=== PATIENT | female | born 1935 | race Caucasian/White ===

== ENCOUNTER 2018-07-10 06:43 | Day surgery (SDC) | payer MEDICARE ==
[2018-07-10] MEDS ORDERED: Propofol 200 MG/20 ML SDV IV ONE (06:44)
[2018-07-10] MEDS ORDERED: Lidocaine 2% 100 MG/5 ML Syringe IVPUSH ONE (06:44)
[2018-07-10] MEDS ORDERED: Lactated Ringers 1,000 ML IV SCH (06:45)
--- NOTE | 2018-07-10 08:19 | PCM.HPR ---
H & P Addendum review - H & P Addendum Review Date of Original H & P: 07/07/18 Date Reviewed: 07/10/18 Time Reviewed: 08:00 Patient was Examined: No Changes
--- NOTE | 2018-07-10 08:31 | PCM.OPNOTE ---
- General Post-Op/Procedure Note Date of Surgery/Procedure: 07/10/18 Operative Procedure(s): EGD Findings: Normal; loose LES Pre Op Diagnosis: Epigastric Pain Post-Op Diagnosis: Same Anesthesia Technique: MAC Primary Surgeon: Dylan Mckenzie Complications: None Condition: Good
[2018-07-10 10:47] VITALS: BP 141/90
--- NOTE | 2018-07-13 08:05 | OR ---
DATE OF OPERATION: 07/10/2018 SURGEON: Dylan Mckenzie MD PREOPERATIVE DIAGNOSIS: Epigastric pain. POSTOPERATIVE DIAGNOSIS: Normal EGD. PROCEDURE: EGD. ANESTHESIA: IV sedation. DESCRIPTION OF PROCEDURE: The patient was brought to the procedure room, where she was placed on her left side and IV sedation administered. Oral bite block was placed and the upper endoscope advanced into the esophagus under direct vision without difficulty. Scope was advanced to the third portion of the duodenum. Duodenum and pylorus were normal. Antrum and body of the stomach were normal. Retroflexion reveals a normal-appearing fundus. The lower esophageal sphincter is weak, and I can visualize into the last few centimeters of the distal esophagus. There are no erosions, ulcerations, strictures or other abnormalities noted. No source of the pain or dark stools was noted. Air was removed from the stomach and the scope withdrawn through the remaining esophagus, which appears normal. Vocal cords were viewed and were normal. The patient tolerated the procedure well and returned to Recovery in stable condition. /[id number] URSZULA/IAM CC: DIONTE RHOADES CNP
== END 2018-07-10 10:05 | disposition home or self-care (01) ==
LOC: FB.SDS 06:43
PROVIDERS: ATTEND Surgery
DX: R10.13 Epigastric pain (principal); R19.5 Other fecal abnormalities; B37.81 Candidal esophagitis; E03.9 Hypothyroidism, unspecified; I11.0 Hypertensive heart disease with heart failure; I50.32 Chronic diastolic (congestive) heart failure; I27.20 Pulmonary hypertension, unspecified; G47.33 Obstructive sleep apnea (adult) (pediatric); Z99.89 Dependence on other enabling machines and devices; I48.91 Unspecified atrial fibrillation; E78.00 Pure hypercholesterolemia, unspecified; K21.9 Gastro-esophageal reflux disease without esophagitis; Z79.01 Long term (current) use of anticoagulants; Z79.899 Other long term (current) drug therapy; Z79.890 Hormone replacement therapy; Z88.1 Allergy status to other antibiotic agents
CPT/HCPCS: 00731; 36415; 43235; 81001; 85610; J2001; J2704; J7120

== ENCOUNTER 2018-07-11 12:27 | Emergency (ER) | payer MEDICARE ==
--- NOTE | 2018-07-11 13:02 | EDM.PDOC ---
ED HPI GENERAL MEDICAL PROBLEM - General Stated Complaint: FEELING ILL STOMACH ACID, EGD YESTERDAY Time Seen by Provider: 07/11/18 12:30 Source of Information: Reports: Patient - History of Present Illness INITIAL COMMENTS - FREE TEXT/NARRATIVE: pt comes with concerns for her Afib, tells me she has Hx of this for 2 years, and yesterday while havening her EGD procedure she was told that she has really afib by one of the staff, pt felt fing after the EGD which was to evaluate GERD , today however she feels anxious about what she was told about her afib yesterday that itt is ( real afib ) she is here with concern that this could be something bad. 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 pt beside the above has no other medical concerns. - Related Data Allergies Allergy/AdvReac Type Severity Reaction Status Date / Time ciprofloxacin Allergy UNKNOWN Verified 07/10/18 07:51 scallops Allergy Rash Verified 07/10/18 07:51 Home Meds: Home Meds Furosemide [Lasix] 40 mg PO DAILY 01/06/13 [History] Levothyroxine Sodium [Synthroid] 100 mcg PO DAILY 01/06/13 [History] Losartan [Cozaar] 100 mg PO DAILY 01/06/13 [History] Omeprazole [Prilosec] 20 mg PO DAILY 01/06/13 [History] Warfarin [Coumadin] 2.5 mg PO MOWEFR 01/06/13 [History] Warfarin [Coumadin] 5 mg PO SUTUTHSA 01/06/13 [History] Allopurinol [Zyloprim] 100 mg PO DAILY 07/09/18 [History] Metoprolol Succinate 25 mg PO DAILY 07/09/18 [History] Multivitamin with Minerals [Multivitamins with Minerals] 1 tab PO DAILY [History] Potassium Chloride 1 tab PO BID 07/09/18 [History] Pravastatin Sodium [Pravastatin (Pravachol)] 1 tab PO BEDTIME 07/09/18 [History] Ranitidine HCl [Ranitidine] 1 tab PO BID 07/09/18 [History] Acetaminophen [Tylenol] 650 mg PO Q4H PRN 07/10/18 [History] Past Medical History HEENT History: Reports: Impaired Vision Cardiovascular History: Reports: Afib, High Cholesterol, Hypertension Respiratory History: Reports: None Gastrointestinal History: Reports: Chronic Constipation, GERD Genitourinary History: Reports: None NET COORDINATOR History: Reports: Musculoskeletal History: Reports: Gout Other Musculoskeletal History: CARPAL TUNNEL SYNDROME ON BOTH SIDES Neurological History: Reports: None Psychiatric History: Reports: None Endocrine/Metabolic History: Reports: Hypothyroidism Hematologic History: Reports: None Immunologic History: Reports: None Oncologic (Cancer) History: Reports: None Dermatologic History: Reports: None - Past Surgical History Head Surgeries/Procedures: Reports: None GI Surgical History: Reports: Appendectomy, Colonoscopy, EGD Female Surgical History: Reports: Cystoscopy, Hysterectomy Social & Family History - Caffeine Use Caffeine Use: Reports: None ED ROS GENERAL - Review of Systems Review Of Systems: See Below Constitutional: Reports: No Symptoms HEENT: Reports: No Symptoms Respiratory: Reports: No Symptoms Cardiovascular: Reports: No Symptoms GI/Abdominal: Reports: No Symptoms Neurological: Reports: No Symptoms ED EXAM, GENERAL - Physical Exam Exam: See Below Exam Limited By: No Limitations General Appearance: Alert, No Apparent Distress, Other (pt seems little anxious) Nose: Normal Inspection Throat/Mouth: Normal Inspection, Normal Lips, Normal Oropharynx, Normal Voice, No Airway Compromise Head: Atraumatic, Normocephalic Neck: Normal Inspection, Supple, Non-Tender Respiratory/Chest: No Respiratory Distress, Lungs Clear, Normal Breath Sounds Cardiovascular: Other (IRIR with normal rate. ). No: No Edema, No Gallop, No Murmur, No Rub, JVD GI/Abdominal: Normal Bowel Sounds, Soft, Non-Tender Neurological: Alert, Oriented, CN II-XII Intact, Normal Cognition, Normal Gait, No Motor/Sensory Deficits Course - Vital Signs Text/Narrative:: EKG shows a-fib with HR in 99, no acute st changes, on monitor her HR is from 80s-100, rest of her vitals are stable, sats in high 90s. pt is comfortable here except for what she was told yesterday about having a ( real a-fib ) whci appear to have scared her the way it was said. pt Coumadin was held prior to her EGD and will be restarted today. i did reassured pt that her chronic afib is stable and that she is doing all what she is supposed to do, taking her medications to keep HR under control also medications to stay anticoagulated. also explained to pt the omeprazole she started just yesterday will take about 1 -2 weeks to show its effects on her GERD sx or not, and for this she was given gicocktail here and was encouraged to continue with her omeprazole and Zantac. - Orders/Labs/Meds Orders: Active Orders 24 hr Category Date Time Status EKG 12 Lead [EK] Routine Ther 07/11/18 12:40 Ordered Departure - Departure Time of Disposition: 13:10 Disposition: Home, Self-Care 01 Clinical Impression: Afib - Discharge Information Referrals: Yary Fierro, COMBINATION MACHINE TENDER [Primary Care Provider] - - My Orders Last 24 Hours: My Active Orders 07/11/18 12:40 EKG 12 Lead [EK] Routine - Assessment/Plan Last 24 Hours: My Active Orders 07/11/18 12:40 EKG 12 Lead [EK] Routine
[2018-07-11] MEDS ORDERED: Alum Hydroxide/Mag Hydroxide 15 ML, Lidocaine 2% 15 ML PO ONE ×2 (13:11)
[2018-07-11 14:57] VITALS: BP 126/80
== END 2018-07-11 13:40 | disposition home or self-care (01) ==
LOC: FB.ED 12:27
DX: I48.91 Unspecified atrial fibrillation (principal); I10 Essential (primary) hypertension; Z91.018 Allergy to other foods; Z88.1 Allergy status to other antibiotic agents; Z79.899 Other long term (current) drug therapy
CPT/HCPCS: 93005; 99284; A9270

== ENCOUNTER 2018-07-20 07:06 | Day surgery (SDC) | payer MEDICARE ==
[2018-07-20] MEDS ORDERED: Propofol 200 MG/20 ML SDV IV ONE (07:07)
[2018-07-20] MEDS ORDERED: Lactated Ringers 1,000 ML IV SCH (07:15)
--- NOTE | 2018-07-20 09:16 | PCM.OPNOTE ---
- General Post-Op/Procedure Note Date of Surgery/Procedure: 07/20/18 Operative Procedure(s): Colonoscopy with polypectomy and biopsy Findings: Small rectal Polyps Moderate Sigmoid Diverticulosis Remainder of colon appears normal Pre Op Diagnosis: Change in bowel habits. Guiac + stools Post-Op Diagnosis: Colon Polyps. Sigmoid Diverticulosis Anesthesia Technique: [facility] Primary Surgeon: Adam Tompkins Pathology: Colon Polyps Random Colon Biopsies EBL in mLs: 4 Complications: None Condition: Good
[2018-07-20 10:09] VITALS: BP 121/88
--- NOTE | 2018-07-20 13:02 | OR ---
DATE OF OPERATION: 07/20/2018 SURGEON: Adam Tompkins MD PREOPERATIVE DIAGNOSES: Guaiac-positive stools and change in bowel habits. POSTOPERATIVE DIAGNOSES: Colon polyps, sigmoid diverticulosis. OPERATION PERFORMED: Colonoscopy with polypectomy and biopsy. INDICATIONS FOR SURGERY: This 83-year-old female was referred for colonoscopy. She has had a recent change in her bowel pattern, is also noted to have guaiac- positive stools. FINDINGS: The patient has 2 polyps noted low in the colon. One is a 5 mm polyp in the rectum 10 cm from the anal verge and the other is a 7 mm polyp in the sigmoid colon, 18 cm from the anal verge. These were both sessile in configuration. The patient has a moderate degree of sigmoid diverticulosis, although this does not appear to be acutely inflamed or otherwise complicated. The remainder of her colon appears normal. PROCEDURE IN DETAIL: The patient was taken to the procedure room. She was given intravenous sedation, and with her in the left lateral decubitus position, digital rectal exam was performed showing no rectal masses. The Olympus colonoscope was inserted into the rectum and retroflexed examination of the rectal canal was performed. The above-described polyps were identified low in the colon. The smaller polyp was removed with a biopsy forceps and the larger polyp was removed with a cautery snare. Both polyps were retrieved. The scope was then carefully advanced under direct visualization through the entire length of the colon until the cecum was reached. The colon was somewhat tortuous, but with careful manipulation, the scope was able to be advanced to the cecum. Cecal acquisition was confirmed by identifying the normal internal cecal anatomy including the appendiceal orifice and ileocecal valve. The light was also noted to transilluminate the abdominal wall in the right lower quadrant. After examining the cecum, the scope was slowly withdrawn sequentially re-examining the colonic segments. During withdrawal of the scope, random biopsies were taken of the right and left sides of the colon to evaluate for her change in bowel habits. After the exam had been completed and with no sign of any complication, the scope was removed and the patient was taken from the procedure room in satisfactory condition. ESTIMATED BLOOD LOSS: 4 mL. COMPLICATIONS: None. PROGNOSIS: Good. /[id number] MICHELET/IAM
--- NOTE | 2018-07-20 13:09 | PREOP ---
ADMISSION DATE: 07/20/2018 This 83-year-old female was referred for colonoscopy. She has a recent history of guaiac-positive stools identified, but also has had a recent change in bowel pattern with increasingly loose stools. She has also had some upper abdominal pain. She is medically stable to proceed today. There is no significant recent change in her health status. I have discussed the proposed colonoscopy with the patient. She understands indications and risks and agrees to proceed accepting risks. /[id number] MICHELET/IAM
== END 2018-07-20 10:12 | disposition home or self-care (01) ==
LOC: FB.SDS 07:06
PROVIDERS: ATTEND Surgery
DX: R19.5 Other fecal abnormalities (principal); R19.4 Change in bowel habit; R10.10 Upper abdominal pain, unspecified; K62.1 Rectal polyp; K63.5 Polyp of colon; K57.30 Diverticulosis of large intestine without perforation or abscess without bleeding; I11.0 Hypertensive heart disease with heart failure; I50.32 Chronic diastolic (congestive) heart failure; I48.0 Paroxysmal atrial fibrillation; E78.00 Pure hypercholesterolemia, unspecified; K21.9 Gastro-esophageal reflux disease without esophagitis; E03.9 Hypothyroidism, unspecified; Z79.01 Long term (current) use of anticoagulants; Z79.899 Other long term (current) drug therapy; Z88.1 Allergy status to other antibiotic agents
CPT/HCPCS: 00812; 45380; 45385; 88305; J2704; J7120

== ENCOUNTER 2020-06-16 09:26 | Emergency (ER) | payer MEDICARE ==
[2020-06-16] MEDS ORDERED: Sodium Chloride 0.9% 10 ML Syringe FLUSH PRN (11:05)
--- NOTE | 2020-06-16 11:12 | EDM.PDOC ---
ED HPI GENERAL MEDICAL PROBLEM - General Chief Complaint: General Stated Complaint: TROUBLE BREATHING Time Seen by Provider: 06/16/20 11:07 Source of Information: Reports: Patient History Limitations: Reports: No Limitations - History of Present Illness INITIAL COMMENTS - FREE TEXT/NARRATIVE: Patient lost her balance two days ago while dusting an endtable and fell to the floor. Denies head injury, loss of consciousness, headache, or neck pain. She complains of right rib pain and SOB due to painful breathing. Denies abdominal or pelvis pain but requests pelvis xray in addition to rib xray to be sure that she doesn't have a fracture. No cough or hemoptysis. Patient was prescribed Macrobid two days ago for a UTI. States dysuria has resolved, but still having urinary frequency. Duration: Day(s): (2) Location: Reports: Chest Severity: Moderate - Related Data Allergies Allergy/AdvReac Type Severity Reaction Status Date / Time ciprofloxacin Allergy Acid Reflux Verified 06/16/20 10:01 scallops Allergy Rash Verified 06/16/20 10:01 Home Meds: Home Meds Furosemide [Lasix] 40 mg PO DAILY 01/06/13 [History] Levothyroxine Sodium [Synthroid] 100 mcg PO DAILY 01/06/13 [History] Losartan [Cozaar] 100 mg PO DAILY 01/06/13 [History] Warfarin [Coumadin] 2.5 mg PO MOWEFR 01/06/13 [History] Warfarin [Coumadin] 5 mg PO SUTUTHSA 01/06/13 [History] Metoprolol Succinate 25 mg PO DAILY 07/09/18 [History] Multivitamin with Minerals [Multivitamins with Minerals] 1 tab PO DAILY 07/09/18 [History] Potassium Chloride 1 tab PO BID 07/09/18 [History] Pravastatin Sodium [Pravastatin (Pravachol)] 1 tab PO BEDTIME 07/09/18 [History] Ranitidine HCl [Ranitidine] 1 tab PO BID 07/09/18 [History] allopurinoL [Zyloprim] 100 mg PO DAILY 07/09/18 [History] Acetaminophen [Tylenol] 650 mg PO Q4H PRN 07/10/18 [History] Omeprazole 1 cap PO DAILY 07/17/18 [History] Past Medical History HEENT History: Reports: Impaired Vision Cardiovascular History: Reports: Afib, High Cholesterol, Hypertension Respiratory History: Reports: None Gastrointestinal History: Reports: Chronic Constipation, GERD Genitourinary History: Reports: None 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: Musculoskeletal History: Reports: Gout Other Musculoskeletal History: CARPAL TUNNEL SYNDROME ON BOTH SIDES Neurological History: Reports: None Psychiatric History: Reports: None Endocrine/Metabolic History: Reports: Hypothyroidism Hematologic History: Reports: None Immunologic History: Reports: None Oncologic (Cancer) History: Reports: None Dermatologic History: Reports: None - Infectious Disease History Infectious Disease History: Reports: None - Past Surgical History Head Surgeries/Procedures: Reports: None GI Surgical History: Reports: Appendectomy, Colonoscopy, EGD Female Surgical History: Reports: Cystoscopy, Hysterectomy Social & Family History - Tobacco Use Tobacco Use Status *Q: Never Tobacco User Second Hand Smoke Exposure: No - Caffeine Use Caffeine Use: Reports: Coffee - Recreational Drug Use Recreational Drug Use: No ED ROS GENERAL - Review of Systems Review Of Systems: Comprehensive ROS is negative, except as noted in HPI. ED EXAM, GENERAL - Physical Exam Exam: See Below Exam Limited By: No Limitations General Appearance: Alert, WD/WN, No Apparent Distress Nose: Normal Inspection Throat/Mouth: No Airway Compromise Head: Atraumatic, Normocephalic Neck: Full Range of Motion Respiratory/Chest: No Respiratory Distress, Lungs Clear, Normal Breath Sounds, Other (Mild right anterior and lateral chest wall tenderness, no deformities or crepitus.) Cardiovascular: Regular Rate, Rhythm, No Murmur GI/Abdominal: Normal Bowel Sounds, Soft, No Distention, Tender (RUQ) Back Exam: Full Range of Motion Extremities: Normal Range of Motion Neurological: Alert, Oriented, Normal Cognition, No Motor/Sensory Deficits Psychiatric: Normal Affect, Normal Mood Skin Exam: Warm, Dry, Intact, Normal Color Course - Vital Signs Last Recorded V/S: Last Vital Signs Temp 36.4 C 06/16/20 09:58 Pulse 88 06/16/20 12:30 Resp 18 06/16/20 12:30 BP 139/83 06/16/20 12:30 Pulse Ox 99 06/16/20 12:30 - Orders/Labs/Meds Orders: Active Orders 24 hr Category Date Time Status Abdomen Pelvis w Cont [CT] Stat Exams 06/16/20 11:06 Taken CULTURE URINE [RM] Stat Lab 06/16/20 10:00 Received Sodium Chloride 0.9% [Saline Flush] Med 06/16/20 11:05 Active 10 ml FLUSH ASDIRECTED PRN Saline Lock Insert [OM.PC] Routine Oth 06/16/20 11:05 Ordered Medication Orders Sodium Chloride (Saline Flush) 10 ml FLUSH ASDIRECTED PRN PRN Reason: Keep Vein Open Labs: Laboratory Tests 06/16/20 06/16/20 06/16/20 Range/Units 09:30 09:30 09:30 WBC 4.9 (3.0-10.3) x10-3/uL RBC 4.24 (3.60-5.20) x10(6)uL Hgb 12.4 (11.4-15.5) g/dL Hct 38.1 (34.2-48.2) % MCV 89.8 (76.7-100.5) fL MCH 29.1 (23.9-33.9) pg MCHC 32.4 (31.9-34.8) g/dL RDW 15.2 (12.3-16.5) % Plt Count 232 (151-488) x10(3)uL MPV 6.8 L (7.1-12.4) fL Neut % (Auto) 75.4 (30.8-76.2) % Lymph % (Auto) 13.4 L (18.4-52.1) % [place] % (Auto) 8.0 (4.4-15.7) % Eos % (Auto) 2.1 (0.6-8.1) % Baso % (Auto) 1.1 (0.2-1.5) % Neut # (Auto) 3.7 (1.5-6.3) x10-3/uL Lymph # (Auto) 0.7 L (1.0-4.4) x10-3/uL [place] # (Auto) 0.4 (0.3-1.0) x10-3/uL Eos # (Auto) 0.1 (0.0-0.8) x10-3/uL Baso # (Auto) 0.1 (0.0-0.1) x10-3/uL PT 21.1 H (9.0-11.1) sec INR 2.04 H (1.00-1.24) Sodium 136 (135-145) mmol/L Potassium 4.2 D (3.5-5.3) mmol/L Chloride 101 (100-110) mmol/L Carbon Dioxide 29 (21-32) mmol/L BUN 16 D (7-18) mg/dL Creatinine 0.9 (0.55-1.02) mg/dL Est Cr Clr Drug Dosing TNP Estimated GFR (MDRD) 59 L (>60) BUN/Creatinine Ratio 17.8 (9-20) Glucose 113 (80-116) mg/dL Calcium 8.9 (8.6-10.2) mg/dL Total Bilirubin 0.7 (0.1-1.3) mg/dL AST 24 (5-25) IU/L ALT 14 (12-36) U/L Alkaline Phosphatase 137 H (56-112) IU/L Total Protein 7.4 (6.0-8.0) g/dL Albumin 3.7 (3.2-4.6) g/dL Globulin 3.7 g/dL Albumin/Globulin Ratio 1.0 Urine Color (YELLOW) Urine Appearance (CLEAR) Urine pH (5.0-6.5) Ur Specific [place] (1.010-1.025) Urine Protein (NEGATIVE) mg/dL Urine Glucose (UA) (NORMAL) mg/dL Urine Ketones (NEGATIVE) mg/dL Urine Occult Blood (NEGATIVE) Urine Nitrite (NEGATIVE) Urine Bilirubin (NEGATIVE) Urine Urobilinogen (NEGATIVE) mg/dL Ur Leukocyte Esterase (NEGATIVE) U Hyaline Cast (Auto) (NS) Urine RBC (0-5) Urine WBC (0-5) Ur Squamous Epith Cells (NS,R,O) Urine Bacteria (NS) 06/16/20 Range/Units 09:58 WBC (3.0-10.3) x10-3/uL RBC (3.60-5.20) x10(6)uL Hgb (11.4-15.5) g/dL Hct (34.2-48.2) % MCV (76.7-100.5) fL MCH (23.9-33.9) pg MCHC (31.9-34.8) g/dL RDW (12.3-16.5) % Plt Count (151-488) x10(3)uL MPV (7.1-12.4) fL Neut % (Auto) (30.8-76.2) % Lymph % (Auto) (18.4-52.1) % [place] % (Auto) (4.4-15.7) % Eos % (Auto) (0.6-8.1) % Baso % (Auto) (0.2-1.5) % Neut # (Auto) (1.5-6.3) x10-3/uL Lymph # (Auto) (1.0-4.4) x10-3/uL [place] # (Auto) (0.3-1.0) x10-3/uL Eos # (Auto) (0.0-0.8) x10-3/uL Baso # (Auto) (0.0-0.1) x10-3/uL PT (9.0-11.1) sec INR (1.00-1.24) Sodium (135-145) mmol/L Potassium (3.5-5.3) mmol/L Chloride (100-110) mmol/L Carbon Dioxide (21-32) mmol/L BUN (7-18) mg/dL Creatinine (0.55-1.02) mg/dL Est Cr Clr Drug Dosing Estimated GFR (MDRD) (>60) BUN/Creatinine Ratio (9-20) Glucose (80-116) mg/dL Calcium (8.6-10.2) mg/dL Total Bilirubin (0.1-1.3) mg/dL AST (5-25) IU/L ALT (12-36) U/L Alkaline Phosphatase (56-112) IU/L Total Protein (6.0-8.0) g/dL Albumin (3.2-4.6) g/dL Globulin g/dL Albumin/Globulin Ratio Urine Color Yellow (YELLOW) Urine Appearance Slightly cloudy (CLEAR) Urine pH 6.5 (5.0-6.5) Ur Specific [place] 1.010 (1.010-1.025) Urine Protein Negative (NEGATIVE) mg/dL Urine Glucose (UA) Normal (NORMAL) mg/dL Urine Ketones Negative (NEGATIVE) mg/dL Urine Occult Blood Negative (NEGATIVE) Urine Nitrite Negative (NEGATIVE) Urine Bilirubin Negative (NEGATIVE) Urine Urobilinogen Normal (NEGATIVE) mg/dL Ur Leukocyte Esterase Moderate H (NEGATIVE) U Hyaline Cast (Auto) Occasional H (NS) Urine RBC 0-5 (0-5) Urine WBC 50-75 H (0-5) Ur Squamous Epith Cells Rare (NS,R,O) Urine Bacteria Moderate H (NS) Meds: Medications Generic Name Dose Route Start Last Admin Trade Name Freq PRN Reason Stop Dose Admin Sodium Chloride 10 ml 06/16/20 11:05 Saline Flush FLUSH ASDIRECTED PRN Keep Vein Open Discontinued Medications Generic Name Dose Route Start Last Admin Trade Name Freq PRN Reason Stop Dose Admin Iopamidol 100 ml 06/16/20 11:21 06/16/20 12:02 Isovue-370 (76%) IV 06/16/20 11:22 74 ml . DIRECTED ONE Administration - Radiology Interpretation Free Text/Narrative:: Right Rib w/ CXR: No acute process. Old healed 9th rib fracture. (Dr. Boss) Pelvis Xray: No acute fracture or dislocation. (Dr. Boss) CT Abd/Pelvis w/ IV contrast: No traumatic findings except left inferior pubic ramus fracture and adjacent intramuscular hematoma without active hemorrhage. (verbal report Dr. Boss) Departure - Departure Time of Disposition: 13:01 Disposition: Home, Self-Care 01 Condition: Good Clinical Impression: Contusion of rib on right side Qualifiers: Encounter type: initial encounter Qualified Code(s): S20.211A - Contusion of right front wall of thorax, initial encounter Inferior pubic ramus fracture Qualifiers: Encounter type: initial encounter Fracture type: closed Laterality: left Qualified Code(s): S32.592A - Other specified fracture of left pubis, initial encounter for closed fracture - Discharge Information *PRESCRIPTION DRUG MONITORING PROGRAM REVIEWED*: No *COPY OF PRESCRIPTION DRUG MONITORING REPORT IN PATIENT ASHLEIGH: Not Applicable Instructions: Rib Contusion, Simple Pelvic Fracture, Adult Referrals: Ney Velez MD [Primary Care Provider] - 2 Days Forms: ED Department Discharge Additional Instructions: Hold Coumadin for 2 days. Take Tylenol as needed to control pain. Follow up with your primary physician in 3-4 days. Return to the ER if symptoms worsen. Sepsis Event Note (ED) - Evaluation Sepsis Screening Result: No Definite Risk - Focused Exam Vital Signs: Vital Signs Temp Pulse Resp BP Pulse Ox 06/16/20 12:30 88 18 139/83 99 06/16/20 11:30 20 140/86 99 06/16/20 10:30 93 18 143/88 H 100 06/16/20 09:58 36.4 C 91 22 H 111/63 97 - My Orders Last 24 Hours: My Active Orders 06/16/20 10:00 CULTURE URINE [RM] Stat 06/16/20 11:05 Sodium Chloride 0.9% [Saline Flush] 10 ml FLUSH ASDIRECTED PRN Saline Lock Insert [OM.PC] Routine 06/16/20 11:06 Abdomen Pelvis w Cont [CT] Stat - Assessment/Plan Last 24 Hours: My Active Orders 06/16/20 10:00 CULTURE URINE [RM] Stat 06/16/20 11:05 Sodium Chloride 0.9% [Saline Flush] 10 ml FLUSH ASDIRECTED PRN Saline Lock Insert [OM.PC] Routine 06/16/20 11:06 Abdomen Pelvis w Cont [CT] Stat
--- NOTE | 2020-06-16 11:14 | CR ---
INDICATION: Right rib injury. RIGHT RIBS WITH CHEST: AP upright chest with three additional views of the right ribs were obtained 06/16/20 and compared with 05/30/16 and 04/07/09. The heart is enlarged. The aorta is tortuous with minimal calcification at the arch. Diminished bone density is noted compatible with osteoporosis. A definite active infiltrate, effusion, contusion or pneumothorax was not identified. There is some deformity at the anterior aspect of the 9th right rib which appears to be due to an old healed fracture site or possibly developmental. A displaced fracture or other definite bony abnormality of an acute nature was not identified. IMPRESSION: 1. No acute process. 2. ASHD. 3. Old healed fracture anterior 9th right rib. Report was called to Dr. Mccann at [address] [facility]
--- NOTE | 2020-06-16 11:18 | CR ---
INDICATION: Fall, right hip pain. PELVIS X-RAY: A single frontal view of the pelvis was obtained 06/16/20 and compared with a MRI from 05/19/[address] pelvis from 04/11/09 again revealing overall demineralization compatible with osteoporosis with pagetoid type changes in the left iliac bone and proximal left femur. A definite fracture or dislocation was not identified. The hip joints appear to be intact. Sacroiliac joints appear to be intact. Degenerative changes and disc disease are noted in the visualized lumbosacral spine with dextroconvex scoliosis of the lumbar spine. IMPRESSION: No definite acute fracture or dislocation. Report was called to Dr. Mccann at approximately 1100 hours. [facility]
[2020-06-16] MEDS ORDERED: Iopamidol 755 Mg/ML 100 ML Bottle IV ONE (11:21)
[2020-06-16 12:56] VITALS: BP 139/83; PULSE 88
--- NOTE | 2020-06-16 14:02 | CT ---
CT ABDOMEN AND PELVIS WITH CONTRAST INDICATION: Fall, pain. Spiral 3.75 mm axial sections were obtained through the abdomen and pelvis with 74 mL Isovue 370 at 1.4 cc/sec with sagittal and coronal reconstructions 06/16/2020 and compared with 05/05/2018. Total exam DLP was 513.66 mGy-cm. The heart is enlarged and may be increased in size compared with the previous study. A definite active infiltrate or effusion was not identified--minimal subsegmental atelectasis may be present at the left lower lobe versus fibrosis in that area. No pericardial effusion was seen. The liver appears normal. The gallbladder showed evidence of calculi as previously and is slightly elongated measuring approximately 97 mm which may be due to NPO status but should be correlated clinically. It was smaller in size on the previous study. The common bile duct was normal in caliber for age at approximately 8.5 mm in this 85-year-old patient. The kidneys appear essentially normal. There is again noted a small low-density lesion at the right adrenal gland which is unchanged and likely represents a minimal adrenal adenoma. The left adrenal is unremarkable. The spleen was unremarkable. The pancreas was relatively diminutive in size and fatty replaced with a small cystic structure at the area of the head of the pancreas which appears smaller in size than on the previous examination seen on axial image 53 on the current study series 2 and on image 67 on the previous series 2 images. The appendix is absent compatible with history of its removal. No evidence of free air or bowel obstruction was identified. A metallic density in the colon may represent a medication. No definite retroperitoneal mass was seen. Calcifications are noted in the abdominal aorta (without aneurysmal dilatation), splenic artery, origins and proximal renal arteries, superior mesenteric artery, iliac, and femoral arteries. The uterus is absent compatible with history of its removal. Urinary bladder had an appearance suggesting some thickening of the wall which could be on the basis of cystitis and should be correlated clinically. No definite mass lesions, additional organomegaly, or free fluid collections were identified in the abdomen or pelvis--no findings to strongly suggest post- traumatic changes were seen. 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 Additionally there is noted a fracture which most likely is subacute but should be correlated clinically at the anterior aspect of the inferior pubic ramus on the left at the pubic symphysis. There is an adjacent soft tissue swelling with an area of what appears to be calcification compatible with a hematoma that is possibly partially calcified suggesting a subacute fracture site and hematoma in that area. This should be correlated clinically. There are multiple fracture fragments--comminuted fracture site with probable adequate position and alignment of the fracture fragments. Sacroiliac joints appear to be intact except for what appear to be Pagetoid changes bilaterally, more prominent on the right than left. There is also a suggestion of bilateral sacral ala insufficiency fractures in adequate position and alignment, previously noted on MRI dated 05/19/2020. These insufficiency fractures and the sacral ala changes do not appear to be present on the previous CT scan of 05/05/2018. A dextroconvex scoliosis is noted in the lumbar spine. Hypertrophic degenerative changes and degenerative disc disease is noted at all lumbosacral spine levels with vacuum disc phenomena at all levels. The wall of the gastric antrum appears to be somewhat thickened raising question of peptic ulcer disease. This should be correlated clinically. It was present previously but is appearing slightly more prominent currently. IMPRESSION: 1. Question peptic ulcer disease, gastric antrum with wall thickening. 2. ASD/ASHD with cardiomegaly. 3. Slight thickening of wall of the urinary bladder may represent cystitis but should be correlated clinically. 4. Hypertrophic degenerative changes and disc disease throughout the lumbosacral spine with dextroconvex scoliosis of mild to moderate degree and changes in the proximal left femur and left pelvis seen previously. 5. Small adrenal adenoma on the right, stable. 6. No definite post-traumatic changes identified. 7. Somewhat prominent size gallbladder with at least one calculus within it. The increased size of the gallbladder may simply be on the basis of NPO status. No findings to strongly suggest acute cholecystitis is seen at this time--no wall thickening or pericholecystic fat stranding or fluid is seen--correlate clinically. 8. There is an irregular fracture site at the pubic symphysis involving the inferior pubic ramus on the left with an adjacent soft tissue swelling and some apparent calcifications in that area suggesting a moderately large hematoma adjacent to the inferior pubic ramus anterolaterally. With a calcification present, the possibility that this represents a previous fracture site that is in the progress of healing with an adjacent hematoma is suggested--this finding was not present on the previous CT scan of 05/05/2018. Report was called to Dr. Mccann at 1225 hours 06/16/2020. [facility]
== END 2020-06-16 13:35 | disposition home or self-care (01) ==
LOC: FB.ED 09:26
DX: S32.592A Other specified fracture of left pubis, initial encounter for closed fracture (principal); S20.211A Contusion of right front wall of thorax, initial encounter; I48.91 Unspecified atrial fibrillation; E78.00 Pure hypercholesterolemia, unspecified; I10 Essential (primary) hypertension; K21.9 Gastro-esophageal reflux disease without esophagitis; M10.9 Gout, unspecified; E03.9 Hypothyroidism, unspecified; Z88.1 Allergy status to other antibiotic agents; Z91.018 Allergy to other foods; Z79.899 Other long term (current) drug therapy; Z79.01 Long term (current) use of anticoagulants; W01.0XXA Fall on same level from slipping, tripping and stumbling without subsequent striking against object, initial encounter
CPT/HCPCS: 36415; 71101-RT; 72170; 74177; 80053; 81001; 85025; 85610; 87086; 99283; 99285-25; Q9967

== ENCOUNTER 2021-11-02 20:06 | Emergency (ER) | payer MEDICARE ==
[2021-11-02 20:55] LABS: ESTIMATED GFR 48 mL/min (>60)
[2021-11-02 21:10] VITALS: BP 157/75; PULSE 72
== END 2021-11-02 22:00 | disposition home or self-care (01) ==
LOC: FB.ED 20:06
DX: G47.9 Sleep disorder, unspecified (principal); I10 Essential (primary) hypertension; E78.00 Pure hypercholesterolemia, unspecified; I48.91 Unspecified atrial fibrillation; Z88.1 Allergy status to other antibiotic agents
CPT/HCPCS: 36415; 80048; 81001; 84443; 84484; 85027; 99283